=== PATIENT | female | born 1970 | race Caucasian/White ===

== ENCOUNTER 2016-12-08 13:42 | Emergency (ER) | payer BC, OTHER ==
[2016-12-08 14:02] VITALS: BMI 31.9
[2016-12-08] MEDS ORDERED: MORPHINE 4 MG/ML INJECTION IV ONE (14:45)
[2016-12-08] MEDS ORDERED: Pharmacy Review for Metformin - IV Contrast Given SCH (15:00)
[2016-12-08 15:06] LABS: RBC/URINE 0-2 (0-5)
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
[2016-12-08 15:08] LABS: LEUKOCYTES/URINE TRACE (NEGATIVE); NITRITE/URINE NEG (NEGATIVE); URINE OCCULT BLOOD NEG (NEG/TRACE)
[2016-12-08 15:33] LABS: AUTOMATED BASOPHIL 0.6 % (0-2); AUTOMATED EOSINOPHIL 0.9 % (0-5); AUTOMATED LYMPH 9.6 % (17-44); AUTOMATED NEUTROPHIL 84.9 % (45-76)
[2016-12-08 15:46] LABS: BLOOD UREA NITROGEN 8 MG/DL (7-17); CALCIUM 9.8 MG/DL (8.4-10.2); CALCULATED OSMOLALITY 264 MOs/Kg (270-290); CHLORIDE 100 mEq/L (98-107); GLUCOSE 102 MG/DL (70-99); SODIUM LEVEL 138 mEq/L (137-146); TOTAL PROTEIN 7.8 G/DL (6.3-8.2)
[2016-12-08] MEDS ORDERED: LIDOCAINE 2% 5 ML (PRESERVATIVE FREE) VIAL INF ONE (15:57)
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
[2016-12-08] MEDS ORDERED: HYDROmorphone 1 MG INJECTION IV ONE (16:22)
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
[2016-12-08] MEDS ORDERED: LIDOCAINE 1% 5 ML (METHYLPARABEN FREE) ONE (16:48)
[2016-12-08 18:42] VITALS: BP 156/84; PULSE 98
== END 2016-12-08 18:40 | disposition home or self-care (01) ==
LOC: ED 13:42
DX: S01.81XA Laceration without foreign body of other part of head, initial encounter (principal); S20.211A Contusion of right front wall of thorax, initial encounter; S31.119A Laceration without foreign body of abdominal wall, unspecified quadrant without penetration into peritoneal cavity, initial encounter; V49.9XXA Car occupant (driver) (passenger) injured in unspecified traffic accident, initial encounter; Y93.89 Activity, other specified; Y92.410 Unspecified street and highway as the place of occurrence of the external cause; R07.81 Pleurodynia
CPT/HCPCS: 12006; 36415; 70450; 71260; 72125; 74177; 80053; 81001; 81025; 85025; 96374; 96375; 99283; A9698; J1170; J2001; J2270; J3490